=== PATIENT | female | born 2000 | race Caucasian/White ===

== ENCOUNTER 2024-01-01 12:12 | Emergency (ER) | payer OTHER, SELFPAY ==
--- OUTSIDE RECORDS SUMMARY | 2024-01-01 12:15 | XMS REPORT | Continuity of Care Document ---
Author Name Unknown Address [address] [facility]. [address] th[address] Address [address] [facility]. 1 [address] [place] [address] Care Team Providers Care Claims Adjuster Name Role Phone PCP, PATIENT DOES NOT HAVE A Primary Care Physic jose manuel Unavailable NICOL CORREA Attending Clinician Unavailable [email or web address] Attending Clinician UnavailFRANCES Granda Attending Clinician UnavailFRANCES Granda Attending Clinician Unavaila BRADLY Murry Attending Clinician Unavailable BRADLY LOERA Attending Clinician Unavailable GEORGE CHOU Attending Clinician UnavailCHAPIS Fine Attending Clinician Unavailable Only, Ang Db Test Attending Clinician UnavailChapis Pinedo Attending Clinician [phone] Doctor Unassigned, [facility] Attending Clinician U navailable [email or web address] Admitting Clinician Unavaila veronique Payers Payer Name Policy Type Policy Number Effective Date Expirati on Date Source [facility] [id number] 2023 00:00:00 Problems Condition Name Condition Details Condition Category Status Onset Date Resolution Date Last Treatment Date Treating Clinician Comments Source Supervisio n of high-risk Supervisio n of high-risk Disease Active 11-02 00:00: 00 [facility] Over weight Over weight Disease Active 11-02 00:00: 00 [facility] Closed fracture of head of radius Closed fracture of head of radius Disease Active 02-03 00:00: 00 [facility] Allergies, Adverse Reactions, Alerts Allergy Name Allergy Type Status Severity Reaction(s) Onset Date Inactive Date Treating Clinician Comments Source NO KNOWN ALLERGIE S Drug Class Active [facility] Social History Social Habit Start Date Stop Date Quantity Comments Source ASSERTION 2019-09-16 00:00:00 [facility] Exposure to SARS-CoV-2 (event) Not sure [facility] Alcohol intake 2019-11-02 00:00:00 2019-11-02 00:00:00 [facility] Sex Assigned At 2000 00:00:00 2000 00:00:00 [facility] Smoking Status Start Date Stop Date Source Unknown if ever smoked Unive [facility] Never smoker [facility] Medications Ordered Medication Name Filled Medication Name Start Date Stop Date Current Medication? Ordering Clinician Indication Dosage Frequency Signature (SIG) Comments Components Source No known medications No Un bambi [facility] Procedures Procedure Date / Time Performed Performing Clinicia n Source REPORT OF 2019-11-02 06:01:00 Doctor Lulu rosasgned, [facility] [id number] CONSENT 2019-11-02 06:01:00 Doctor Babatunde signed, [facility] Encounters Start Date/Time End Date/Time Encounter Type Admission Type Attending Clinicians Care Facility Care Department Encounter ID Source 2024-02-01 09:30:00 2024-02-01 09:30:00 Outpatient R NICOL CORREA [facility] [id number] [facility] 2023-07-29 00:00:00 2023-07-29 00:00:00 Outpatient [email or web address] [facility] [id number] [facility] 2023-02-16 15:30:00 2023-02-16 15:30:00 Outpatient R FRANCES KAPLAN CHERYAL [facility] [id number] [facility] 2021-12-14 13:30:00 2021-12-14 13:30:00 Outpatient R GEORGE CHOU [facility] [id number] [facility] 2021-08-06 19:45:00 2021-08-06 20:10:43 Outpatient R ROXANA BEALY [facility] [id number] [facility] 2021-08-06 19:29:21 2021-08-06 19:44:21 Laboratory Only Only, Ang Db Test Gavino [facility] JOSE DANIEL[facility] [id number] [facility] 2021-08-06 00:00:00 2021-08-06 00:00:00 Letter (Out) Doctor Unassigned, [facility] [place] [id number] [facility] 2019-11-02 00:00:00 2019-11-02 00:00:00 Orders Only Doctor Unassigned, [facility] [place] [id number] [facility]
--- NOTE | 2024-01-01 12:53 | RAD REPORT ---
EXAM DESCRIPTION: RAD - Chest Single View - 01/01/2024 12:42 pm CLINICAL HISTORY: seizure COMPARISON: No comparisons FINDINGS: Lines: None. Lungs: No evidence of edema or pneumonia. Pleural: No significant pleural effusions or pneumothorax. Cardiac: The heart size is within normal limits. Mediastinum: Within normal limits. Bones: No acute fractures. Other: None IMPRESSION: No acute cardiopulmonary disease.
[2024-01-01 13:12] LABS: Absolute Basophils 0.1 K/uL (0-0.5); Absolute Eosinophils 0.3 K/uL (0-0.5); Absolute Lymphocytes (CBC) 1.2 K/uL (0.7-4.9); Absolute Monocytes 0.7 K/uL (0.1-1.3); Absolute Neutrophil 8.1 K/uL (1.8-8.0); Basophils % 0.9 % (0-1.3); Eosinophils % 2.6 % (0-4.4); Hematocrit 44.2 % (36.0-45.0); Hemoglobin 15.3 g/dL (12.0-15.0); Lymphocytes % 11.3 % (15.3-44.8); MCH 31.2 pg (27.0-35.0); MCHC 34.6 g/dL (32.0-36.0); MCV 90.2 fL (80-100); Monocytes % 6.8 % (3.3-12.3); Neutrophils % 78.4 % (41.7-73.7); Platelets 375 thou/uL (152-406); RBC Red Blood Cell Count 4.89 M/uL (3.86-4.86); Red Cell Distribution Width 12.2 % (12.1-15.2)
[2024-01-01 13:16] LABS: Specific Gravity 1.024 (1.005-1.030)
[2024-01-01 13:20] LABS: Specific Gravity 1.024 (1.005-1.030); Sqamous Epithelial <5 /HPF (None Seen); Transitional Epithelial <5 /HPF (None Seen); Urine Bacteria 20-50 /HPF (<20); Urine Bilirubin NEGATIVE (Negative); Urine Blood 2+ (Negative); Urine Clarity Extremely Turbid (Clear); Urine Color Light-Yellow (Yellow); Urine Culture Reflex Order REFLEXED; Urine Glucose NEGATIVE (Negative); Urine Granular Casts 0-5 /LPF (None Seen); Urine Ketones 1+ (Negative); Urine Microscopic Reflex YN ORDER UMIC; Urine Mucus 2+ /HPF (None Seen); Urine Nitrite NEGATIVE (Negative); Urine Protein 1+ (Negative); Urine RBC 21-50 /HPF (None Seen); Urine Urobilinogen Normal (Normal); Urine WBC 20-50 /HPF (<5); Urine pH 5.5 (5.0-7.0)
[2024-01-01 13:21] LABS: PT Prothrombin Time 10.9 SECONDS (9.5-12.5); Protime INR 0.99
[2024-01-01 13:26] LABS: Benzodiazepines POSITIVE (NEGATIVE); Cocaine POSITIVE (NEGATIVE); METHAMPHETAM NEGATIVE (NEGATIVE); Opiates NEGATIVE (NEGATIVE); Phencyclidine NEGATIVE (NEGATIVE); THC Cannibis POSITIVE (NEGATIVE)
[2024-01-01 13:27] LABS: Barbiturates NEGATIVE (NEGATIVE); Methadone NEGATIVE (NEGATIVE)
[2024-01-01 13:30] LABS: ALT/SGPT 60 U/L (13-56); AST/SGOT 48 U/L (15-37); Albumin 4.6 g/dL (3.4-5.0); Albumin/Globulin Ratio 1.2 (1.1-1.8); Alkaline Phosphatase 68 U/L (45-117); BUN Blood Urea Nitrogen 8 mg/dL (7-18); Bicarbonate 26 mEq/L (21-32); Bilirubin Direct 0.2 mg/dL (0-0.2); Bilirubin Indirect, Calculated 0.3 mg/dL (0.2-0.8); Bilirubin Total 0.5 mg/dL (0.2-1.0); Globulin 3.7 g/dL (2.3-3.5); Glomerular Filtration Rate 90 ml/min (=/>90); Glucose Level 94 mg/dL (74-106); Protein, Total 8.3 g/dL (6.4-8.2); Sodium Level 136 mEq/L (136-145)
[2024-01-01 13:31] LABS: Troponin High Sensitivity < 3.0 pg/mL (<58.9)
--- NOTE | 2024-01-01 13:57 | RAD REPORT ---
EXAM DESCRIPTION: CT - Head Brain Wo Cont - 01/01/2024 1:51 pm CLINICAL HISTORY: SEIZURE COMPARISON: No comparisons TECHNIQUE: All CT scans are performed using dose optimization technique as appropriate and may inclu de automated exposure control or mA/KV adjustment according to patient size. FINDINGS: No intracranial hemorrhage, hydrocephalus or extra-axial fluid collection.No areas of brai n edema or evidence of midline shift. The paranasal sinuses and mastoids are clear. The calvarium is intact. IMPRESSION: No acute intracranial abnormality.
[2024-01-01] MEDS ORDERED: CEFTRIAXONE 1000 MG/VIAL ONE (13:59)
[2024-01-01] MEDS ORDERED: NA CHLORIDE 0.9% 100 ML ONE (14:00)
[2024-01-01] MEDS ORDERED: LEVETIRACETAM 500 MG/5 ML VIAL IV ONE (14:00)
[2024-01-01] MEDS ORDERED: NA CHLORIDE 0.9% 1,000 ML ONE (14:00)
--- NOTE | 2024-01-01 14:38 | ER ---
Nurse's Notes [facility] Name: Shana Delvalle Age: 23 yrs Sex: Female : 2000 Arrival Date: 01/01/2024 Time: 12:12 Bed 19 Private MD: Diagnosis: seizure due to external cause Presentation: 12/31 12:22 Chief complaint: Patient states: Grandma found her in bed shaking, drooling, breathing as6 heavy around 1130 today. Was confused when she stopped shaking. Slowly got back to normal. EMS on scene-VSS. Never had a seizure before. Coronavirus screen: Client denies travel out of the [place] in the last 14 days. At this time, the client does not indicate any symptoms associated with coronavirus-19. Ebola Screen: Patient denies travel to an Ebola-affected area in the 21 days before illness onset. Initial Sepsis Screen: Does the patient meet any 2 criteria? No. Patient's initial sepsis screen is negative. Does the patient have a suspected source of infection? No. Patient's initial sepsis screen is negative. Risk Assessment: Do you want to hurt yourself or someone else? Patient reports no desire to harm self or others. Onset of symptoms was January 01, 2024. 12:22 Method Of Arrival: Ambulatory as6 12:22 Acuity: KEERTHI 3 as6 Triage Assessment: 12:26 General: Appears uncomfortable, Behavior is calm, cooperative, appropriate for age. ll1 Pain: Complains of pain in head Pain currently is 6 out of 10 on a pain scale. Quality of pain is described as aching. Neuro: Reports headache weakness seizure activity BRAZER RESISTANCE. Cardiovascular: No deficits noted. Historical: - Allergies: 12:21 No Known Allergies; as6 - PMHx: 12:21 None; as6 - PSHx: 12:21 None; as6 - Immunization history:: Adult Immunizations up to date. - Social history:: Smoking status: Reported history of juuling and/or vaping. Screenin:10 [facility] ED Fall Risk Assessment (Adult) History of falling in the last 3 months, mb9 including since admission No falls in past 3 months (0 pts) Confusion or Disorientation No (0 pts) Intoxicated or Sedated No (0 pts) Impaired Gait No (0 pts) Mobility Assist Device Used No (0 pt) Altered Elimination No (0 pt) Score/Fall Risk Level 0 - 2 = Low Risk Oriented to surroundings, Maintained a safe environment, Educated pt \T\ family on fall prevention, incl call for assistance when getting out of bed. Abuse screen: Denies threats or abuse. Nutritional screening: No deficits noted. Tuberculosis screening: No symptoms or risk factors identified. Assessment: 12:53 Reassessment: No changes from previously documented assessment. ll1 13:09 General: Appears in no apparent distress. Behavior is calm, cooperative. Pain: mb9 Complains of pain in head Pain does not radiate. Pain at worst was 5 out of 10 on a pain scale. Quality of pain is described as throbbing, Pain began suddenly, Is intermittent. Neuro: Hunt Agitation-Sedation Scale (RASS): 0 - Alert and Calm Level of Consciousness is awake, alert, obeys commands, Oriented to person, place, time, situation, Appropriate for age Reports headache. Cardiovascular: Heart tones S1 S2 present Patient's skin is warm and dry. Respiratory: Airway is patent Respiratory effort is even, unlabored, Respiratory pattern is regular, symmetrical. GI: No signs and/or symptoms were reported involving the gastrointestinal system. : No signs and/or symptoms were reported regarding the genitourinary system. EENT: No signs and/or symptoms were reported regarding the EENT system. Derm: Skin is pink, warm \T\ dry. Musculoskeletal: Range of motion: intact in all extremities. 14:39 Reassessment: No changes from previously documented assessment. Patient and/or family mb9 updated on plan of care and expected duration. Pain level reassessed. Patient is alert, oriented x 3, equal unlabored respirations, skin warm/dry/pink. Vital Signs: 12:22 BP 135 / 76; Pulse 80; Resp 15; Temp 97.6; Pulse Ox 100% ; Weight 70.31 kg; Height 5 as6 ft. 2 in. ; Pain 6/10; 14:28 BP 124 / 94; Pulse 66; Resp 18; Pulse Ox 100% on R/A; mb9 14:40 BP 97 / 85; Pulse 85; Resp 18; Pulse Ox 100% on R/A; mb9 12:22 Body Mass Index 28.35 (70.31 kg, 157.48 cm) as6 12:22 Pain Scale: Adult as6 [place] Coma Score: 12:26 Eye Response: spontaneous(4). Motor Response: obeys commands(6). Verbal Response: ll1 oriented(5). Total: 15. ED Course: 12:16 Patient arrived in ED. ra3 12:24 Triage completed. as6 12:24 Jing Riley PA-C is PHCP. sb4 12:24 Sunita Anderson MD is Attending Physician. sb4 12:24 Arm band placed on. ll1 12:44 Chest Single View XRAY In Process Unspecified. EDMS 12:53 Patient placed in an exam room, on a stretcher. ll1 12:57 Rebecca Michelle RN is Primary Nurse. mb9 13:09 Initial lab(s) drawn, by me, sent to lab. Urine collected: clean catch specimen, clear, mb9 EKG done, by ED staff, reviewed by Jing Riley PA-C. Inserted saline lock: 22 gauge in right antecubital area, using aseptic technique. Blood collected. 13:10 Placed in gown. Bed in low position. Call light in reach. Side rails up X 1. Seizure mb9 precautions initiated. Provided Education on: press call light if needing anything. Client placed on continuous cardiac and pulse oximetry monitoring. NIBP monitoring applied. laboratory monitor on. Door closed. Noise minimized. Warm blanket given. 13:10 No provider procedures requiring assistance completed. mb9 13:11 Basic Metabolic Panel Sent. mb9 13:11 CBC with Diff Sent. mb9 13:11 Hepatic Function Sent. mb9 13:11 Magnesium Sent. mb9 13:11 Test, Urine Sent. mb9 13:11 Protime (+inr) Sent. mb9 13:11 Ptt, Activated Sent. mb9 13:11 Troponin High Sensitivity Sent. mb9 13:11 UDS Sent. mb9 13:11 Urinalysis w/ reflexes Sent. mb9 13:[address] via wheelchair. mb9 13:53 CT Head Brain wo Cont In Process Unspecified. EDMS 14:39 IV discontinued, intact, bleeding controlled, No redness/swelling at site. Pressure mb9 dressing applied. Administered Medications: 14:00 Drug: Keppra IV 1000 mg IV at calculated rate once Route: IV; Rate: calculated rate; mb9 Site: right antecubital; 14:39 Follow up: Response: No adverse reaction; IV Status: Completed infusion mb9 14:05 Drug: Rocephin IV 1 grams IV at calculated rate once; Given slow IV push per pharmacy mb9 instructions Route: IV; Rate: calculated rate; Site: right antecubital; 14:39 Follow up: Response: No adverse reaction; IV Status: Completed infusion mb9 14:05 Drug: NS 0.9% IV 1000 ml IV at 1 bolus Per protocol; 1000 mL bolus Route: IV; Rate: 1 mb9 bolus; Site: right antecubital; 14:39 Follow up: Response: No adverse reaction; IV Status: Completed infusion mb9 Medication: 13:10 VIS not applicable for this client. mb9 Outcome: 14:37 Discharge ordered by . [email or web address] 14:40 Discharged to home ambulatory, with family, mb9 14:40 Condition: stable 14:40 Discharge instructions given to patient, Instructed on discharge instructions, follow up and referral plans. Demonstrated understanding of instructions, follow-up care, 14:44 Patient left the ED. mb9 Signatures: Dispatcher [employer] EDMS Garth eVga RN RN ll1 Sridhar Ng RN RN as6 Jing Riley, PA-C PA-C sb4 Rebecca Michelle RN RN mb9 Jocy Oglesby ra3 Corrections: (The following items were deleted from the chart) 12:22 12:21 Home Meds: None; as6 as6 12:53 12:24 Arm band placed on Patient placed in an exam room, on a stretcher, as6 ll1 12:54 12:22 Chief complaint: Patient states: Grandma found her in bed shaking, drooling, ll1 breathing heavy. Was confused when she stopped shaking. Slowly got back to normal. EMS on scene-VSS. Never had a seizure before as6
--- NOTE | 2024-01-01 14:38 | EDPHYS ---
Physician Documentation [facility] Name: Shana Delvalle Age: 23 yrs Sex: Female : 2000 Arrival Date: 01/01/2024 Time: 12:12 Bed 19 Private MD: ED Physician Sunita Anderson HPI: 12/31 13:50 This 23 yrs old Female presents to ER via Ambulatory with complaints of Seizure. sb4 01/01 08:32 Mom witnessed patient having a seizure this morning. Patient has no history of sb4 seizures. She arrives by private vehicle today complaining of a headache. Mom states that she was postictal initially. Patient states that she did drink and smoke weed last night. Mom states that she did not stop breathing during the seizure nor did she lose any bowel or bladder incontinence. Historical: - Allergies: 12/31 12:21 No Known Allergies; as6 - PMHx: 12:21 None; as6 - PSHx: 12:21 None; as6 - Immunization history:: Adult Immunizations up to date. - Social history:: Smoking status: Reported history of juuling and/or vaping. ROS: 01/01 08:32 Constitutional: Negative for fever, chills, and weight loss, sb4 Neuro: Positive for headache, seizure activity, All other systems are negative, Exam: 08:32 Constitutional: This is a well developed, well nourished patient who is awake, alert, sb4 and in no acute distress. Head/Face: Normocephalic, atraumatic. Eyes: Extra-ocular motions intact. Periorbital areas with no swelling, redness, or edema. ENT: Mucous membranes moist. Cardiovascular: Regular rate and rhythm with a normal S1 and S2. Respiratory: Lungs have equal breath sounds bilaterally, clear to auscultation and percussion. No rales, rhonchi or wheezes noted. No increased work of breathing, no retractions or nasal flaring. Abdomen/GI: Soft, non-tender, no distension. Skin: Warm, dry with normal turgor. Normal color with no rashes, no lesions, and no evidence of cellulitis. MS/ Extremity: Pulses equal, no cyanosis. Neurovascular intact. Full, normal range of motion. Neuro: Awake and alert, GCS 15, oriented to person, place, time, and situation. Motor strength 5/5 in all extremities. Sensory grossly intact. Vital Signs: 12/31 12:22 BP 135 / 76; Pulse 80; Resp 15; Temp 97.6; Pulse Ox 100% ; Weight 70.31 kg; Height 5 as6 ft. 2 in. ; Pain 6/10; 14:28 BP 124 / 94; Pulse 66; Resp 18; Pulse Ox 100% on R/A; mb9 14:40 BP 97 / 85; Pulse 85; Resp 18; Pulse Ox 100% on R/A; mb9 12:22 Body Mass Index 28.35 (70.31 kg, 157.48 cm) as6 12:22 Pain Scale: Adult as6 [place] Coma Score: 12:26 Eye Response: spontaneous(4). Motor Response: obeys commands(6). Verbal Response: ll1 oriented(5). Total: 15. MDM: 12:24 Patient medically screened. sb4 01/01 08:32 Data reviewed: vital signs, nurses notes, lab test result(s), EKG, radiologic studies, sb4 and as a result, I will discharge patient. Historians other than the Patient: Parent: Mother. Counseling: I had a detailed discussion with the patient and/or guardian regarding the historical points, exam findings, and any diagnostic results supporting the discharge/admit diagnosis, lab results, radiology results, to return to the emergency department if symptoms worsen or persist or if there are any questions or concerns that arise at home. ED course: UDS positive for benzos, THC, and cocaine. Advised patient to abstain from drug and alcohol abuse as this can increase her risk of seizures. Stated diagnosis of epilepsy is unlikely at this time but to return promptly if she does have another seizure. 12/31 12:29 Order name: Basic Metabolic Panel; Complete Time: 13:32 sb4 12/31 12:29 Order name: CBC with Diff; Complete Time: 13:28 sb4 12/31 12:29 Order name: Hepatic Function; Complete Time: 13:32 sb4 12/31 12:29 Order name: Magnesium; Complete Time: 13:32 sb4 12/31 12:29 Order name: Test, Urine; Complete Time: 13:26 sb4 12/31 12:29 Order name: Protime (+inr); Complete Time: 13:26 sb4 12/31 12:29 Order name: Ptt, Activated; Complete Time: 13:26 sb4 12/31 12:29 Order name: Troponin High Sensitivity; Complete Time: 13:32 sb4 12/31 12:29 Order name: UDS; Complete Time: 13:27 sb4 12/31 12:29 Order name: Urinalysis w/ reflexes; Complete Time: 13:26 sb4 12/31 13:25 Order name: Urine Culture EDPA 12/31 12:29 Order name: CT Head Brain wo Cont; Complete Time: 13:58 sb4 12/31 12:29 Order name: Chest Single View XRAY; Complete Time: 12:54 sb4 12/31 12:29 Order name: EKG; Complete Time: 12:29 sb4 12/31 12:29 Order name: Cardiac monitoring; Complete Time: 12:57 sb4 12/31 12:29 Order name: EKG - Nurse/Tech; Complete Time: 13:11 sb4 12/31 12:29 Order name: IV Saline Lock; Complete Time: 13:11 sb4 12/31 12:29 Order name: Labs collected and sent; Complete Time: 13:11 sb4 12/31 12:29 Order name: NPO; Complete Time: 12:57 sb4 12/31 12:29 Order name: O2 Per Protocol; Complete Time: 12:57 sb12/31 12:29 Order name: O2 Sat Monitoring; Complete Time: 12:57 sb4 EC/31 13:06 Rate is 65 beats/min. Rhythm is regular, Sinus arrythmia. IN interval is normal at 142 sb4 msec. QRS interval is normal at 80 msec. QT interval is normal at 386 msec. No Q waves. T waves are Normal. No ST changes noted. Clinical impression: Sinus arrythmia. Interpreted by me. Reviewed by me. Administered Medications: 14:00 Drug: Keppra IV 1000 mg IV at calculated rate once Route: IV; Rate: calculated rate; mb9 Site: right antecubital; 14:39 Follow up: Response: No adverse reaction; IV Status: Completed infusion mb9 14:05 Drug: Rocephin IV 1 grams IV at calculated rate once; Given slow IV push per pharmacy mb9 instructions Route: IV; Rate: calculated rate; Site: right antecubital; 14:39 Follow up: Response: No adverse reaction; IV Status: Completed infusion mb9 14:05 Drug: NS 0.9% IV 1000 ml IV at 1 bolus Per protocol; 1000 mL bolus Route: IV; Rate: 1 mb9 bolus; Site: right antecubital; 14:39 Follow up: Response: No adverse reaction; IV Status: Completed infusion mb9 Disposition Summary: 01/01/24 14:37 Discharge Ordered Notes: Location: Home sb4 Problem: new sb4 Symptoms: have improved sb4 Condition: Stable sb4 Diagnosis - seizure sb4 - seizure due to external cause sb4 Followup: sb4 - With: Emergency Department - When: As needed - Reason: Trouble breathing, Worsening of condition Discharge Instructions: - Discharge Summary Sheet sb4 - Non-Epileptic Seizures, Adult sb4 Forms: - Thank You Letter sb4 - Patient Portal Instructions sb4 - Leadership Thank You Letter sb4 Signatures: Dispatcher [employer] Sridhar Shah RN RN as6 Jing Riley PA-C PA-C sb4 Rebecca Michelle RN RN mb9 Corrections: (The following items were deleted from the chart) 12:22 12:21 Home Meds: None; as6 as6 12:29 12:29 BASIC METABOLIC PANEL+C.LAB.BRZ ordered. EDPA EDMS 12: 12:29 CBC+H.LAB.BRZ ordered. EDPA EDMS 12: 12:29 HEPATIC FUNCTION+C.LAB.BRZ ordered. EDPA EDMS 12: 12:29 MAGNESIUM+C.LAB.BRZ ordered. EDPA EDMS 12: 12:29 Test, Urine+UC.LAB.BRZ ordered. EDPA EDMS 12: 12:29 PROTIME (+INR)+COAG.LAB.BRZ ordered. EDPA EDMS 12: 12:29 PTT, ACTIVATED+COAG.LAB.BRZ ordered. EDPA EDMS 12: 12:29 Troponin High Sensitivity+C.LAB.BRZ ordered. EDPA EDMS 12: 12:29 URINE DRUG SCREEN+UC.LAB.BRZ ordered. EDPA EDMS 12: 12:29 Urinalysis+U.LAB.BRZ ordered. EDPA EDPA 01/01 08:33 08:32 Mom witnessed patient having a seizure this morning. Patient has no history of sb4 seizures. She arrives POV today complaining of a headache. Mom states that she was postictal initially. Patient states that she did drink and smoke weed last night. Mom states that she did not stop breathing during the seizure nor did she lose any bowel or bladder incontinence. sb4
[2024-01-01 19:16] VITALS: BP 97/85; TEMP 97.6; O2SAT 100
--- NOTE | 2024-01-02 13:41 | EKG ---
Test Date: 2024-01-01 Test Time: 12:03:09 Fire Suppression Captain: MB MEASUREMENT RESULTS: Intervals: Rate: 65 HI: 142 QRSD: 80 QT: 386 QTc: 401 [place]: P: 66 HI: 142 QRS: 86 T: 53 INTERPRETIVE STATEMENTS: Sinus rhythm with marked sinus arrhythmia Otherwise normal ECG No previous ECG available for comparison Electronically Signed On 01-02-24 13:36:55 CDT by Roberto Contreras
== END 2024-01-01 14:44 | disposition home or self-care (01) ==
LOC: ER 12:12
DX: G40.509 Epileptic seizures related to external causes, not intractable, without status epilepticus (principal)
CPT/HCPCS: 36415; 70450; 71045; 80048; 80076; 80307; 81001; 81025; 83735; 84484; 85025; 85610; 85730; 87086; 87088; 93005; 96365; 99285; J0696; J1953; J7030